=== PATIENT | female | born 1935 | race Caucasian/White ===

== ENCOUNTER → 2022-07-24 11:53 | Outpatient (CLI) | payer MEDICARE, OTHER, SELFPAY | PROVIDERS: Referring Provider Chiropractor Independent Medical Examiner; Visit Provider Chiropractor Independent Medical Examiner | DX: M25.551 Pain in right hip (principal); M16.11 Unilateral primary osteoarthritis, right hip; M99.05 Segmental and somatic dysfunction of pelvic region; M99.06 Segmental and somatic dysfunction of lower extremity; M51.37 Other intervertebral disc degeneration, lumbosacral region ==

== ENCOUNTER → 2022-07-24 12:16 | Outpatient (CLI) | payer MEDICARE, OTHER, SELFPAY ==
--- NOTE | 2022-07-24 | DI.MRI.S_ITS ---
PROCEDURE: MR HIP RT WO CON INDICATIONS: RIGHT HIP PAIN TECHNIQUE: Noncontrast coronal T1 spin echo and STIR through the bony pelvis. Coronal and axial T2 fast spin echo with fat saturation, sagittal T1 spin echo, and oblique axial T2 fast spin echo with fat saturation through the hip. COMPARISON: [facility], MR, MR PELVIS WO CON, 07/24/2022, 12:22. FINDINGS: Image quality: Excellent. Bones and joints: Periarticular osteophyte formation at the bilateral hips. Bone marrow of the pelvic ring and proximal femurs show normal signal throughout. No intraosseous lesions or fractures. No avascular necrosis of the femoral heads. The visualized lower lumbar spine appears normally aligned. Tendons and ligaments: Moderate grade tearing of the right gluteus medius and minimus tendons at the femoral insertion sites with moderate surrounding T2 signal elevation. The nearby proximal iliotibial band also appears intact. The iliopsoas tendon appears intact, without adjacent bursal fluid collections or evidence for impingement syndrome. The origin of the hamstring tendon is intact at the ischial tuberosity, as well as the associated sacrotuberous ligament. The straight and reflected heads of the rectus femoris muscle origin appear intact, as well as the conjoint tendon. The ligamentum teres appears intact where visualized. Labrum and cartilage: Degenerative tearing of the bilateral hip vidal. Cartilage surface of the femoral head appears of normal thickness. The alpha angle of the femur is within normal limits at less than 55 degrees. Soft tissues: Visualized muscles demonstrate normal bulk and internal signal. Quadratus femoris muscle demonstrates no internal edema to suggest ischiofemoral impingement. The proximal sciatic neurovascular bundle appears normal adjacent to the hamstring tendons. No free pelvic fluid. Bladder wall thickness is normal. Genitourinary structures and bowel loops appear normal where visualized. IMPRESSION: 1. 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 2. Partial-thickness tearing of the right gluteus medius and minimus tendons. Dictated by: Ramez Rodarte M.D. on 07/24/2022 at 15:49 Transcribed by: SANCHO on 07/24/2022 at 15:52 Approved by: Ramez Rodarte M.D. on 07/24/2022 at 16:44
--- NOTE | 2022-07-24 12:19 | DI.MRI.S_ITS ---
PROCEDURE: MR PELVIS WO CON INDICATIONS: RT. HIP PAIN TECHNIQUE: Noncontrast coronal and axial T1 spin echo and STIR through the bony pelvis. COMPARISON: None. FINDINGS: Image quality: Excellent. Bones: Symmetric appearing [id number] bilateral hip joint osteoarthritic changes are seen with superior joint space narrowing, subchondral sclerosis and small marginal osteophyte formation. No marrow edema. No intraosseous lesions or fractures identified. No evidence of avascular necrosis of femoral head. The visualized lower lumbar spine appears normally aligned. Tendons: There is bilateral distal gluteus medius and minimus tendinosis at their insertions on greater trochanter. Low to moderate grade partial-thickness tear involving right distal gluteus medius and minute tendons at their insertion on greater trochanter is also seen. The nearby proximal iliotibial band also appears intact. The iliopsoas tendon appears intact, without adjacent bursal fluid collections or evidence for impingement syndrome. The origin of the hamstring tendon is intact at the ischial tuberosity, as well as the associated sacrotuberous ligament. The straight and reflected heads of the rectus femoris muscle origin appear intact, as well as the conjoint tendon. Soft tissues: Visualized muscles demonstrate normal bulk and internal signal. No joint effusions. No free pelvic fluid. Bladder wall thickness is normal. Genitourinary structures and bowel loops appear normal where visualized. IMPRESSION: 1. Fairly symmetric appearing [id number] bilateral hip joint osteoarthritis. No pelvic fracture or dislocation. No evidence of avascular necrosis of femoral head. No suspicious bony lesion. 2. Bilateral distal gluteus medius and minimus tendinosis with low to moderate grade partial-thickness tear involving right distal gluteus medius and minimus at their insertions on greater trochanter. No other muscle or tendon signal abnormality is seen. 3. No pelvic free fluid. No abnormal bowel wall thickening. No bladder wall thickening. Dictated by: Vernon Juráez M.D. on 07/24/2022 at 17:32 Approved by: Vernon Juárez M.D. on 07/24/2022 at 17:35
== END ==
PROVIDERS: Referring Provider Chiropractor Independent Medical Examiner; Visit Provider Chiropractor Independent Medical Examiner
DX: M25.551 Pain in right hip (principal); M99.05 Segmental and somatic dysfunction of pelvic region; M51.37 Other intervertebral disc degeneration, lumbosacral region; M16.11 Unilateral primary osteoarthritis, right hip; M99.06 Segmental and somatic dysfunction of lower extremity
CPT/HCPCS: 72195; 73721

== ENCOUNTER 2022-11-09 16:39 | Emergency (ER) | payer MEDICARE, OTHER, SELFPAY ==
[2022-11-09] VITALS (30 sets, daily range): BP systolic 114–175; BP diastolic 53–114; PULSE 59–90; RESP 16–85; TEMP 36.4–37; O2SAT 88–99; BMI 28.8
--- NOTE | 2022-11-09 16:55 | ED_ITS ---
HPI - Weakness <DO Gray Beasley Last Filed: 11/16/22 17:08> General Chief complaint: Weakness Stated complaint: shaky/cant walk Time Seen by Provider: 11/09/22 16:54 Source: patient Mode of arrival: Wheelchair Limitations: no limitations History of Present Illness HPI Narrative: This is a 87-year-old female with no daily medications, patient was at a holiday republican had at least 1 maybe 2 drinks daughter states she was a little wobbly but that is normal for her way back to the car. Patient she states gotten the car started to be more decreased in her mentation and could not walk or even get out of the car afterwards. Patient states the room was spinning, she denies headache, she denies chest pain or shortness of breath, she has had nausea and vomiting. She feels like she might have diarrhea but has had normal stools. She is having some cramping in her abdomen. She denies urinary symptoms. She is able to move her arms and legs but with some difficulty. 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 She is allergies to codeine, penicillin, morphine and oxycodone and daughter states she gets very sick with most narcotics. No tobacco, she will sometimes have 1 alcoholic drink, last drink was about 5 months ago, no illicit. Patient denies any co-ingestions, neither patient nor daughter are suspicious for exposure to other substances unintentionally. Related Data Home Medications Medication Instructions Recorded Confirmed No Known Home Medications 07/24/22 07/24/22 Allergies Allergy/AdvReac Type Severity Reaction Status Date / Time codeine AdvReac Severe Vomiting Verified 07/24/22 13:59 morphine AdvReac Severe Vomiting Verified 07/24/22 13:59 Penicillins AdvReac Intermediate Vomiting Verified 07/24/22 13:59 oxycodone AdvReac Vomiting Unverified 07/24/22 13:59 Review of Systems <DO Gray Beasley Last Filed: 11/16/22 17:08> Review of Systems ROS Unobtainable: All systems reviewed & are unremarkable except as noted in HPI and below Patient History <DO Gray Beasley Last Filed: 11/16/22 17:08> Medical History Back pain Memory loss, short term Social History Smoking Status: Never smoker Smoking Status: Never smoker Substance Use Type: does not use Exam <Violeta Chacko DO - Last Filed: 11/16/22 17:08> Narrative Exam Narrative: GEN: Elderly appearing female initially slumped in the chair, she does interact, alert, tries to answer questions but she feels very nauseated and dry heaves, patient appears to be in in moderate distress. HEENT: Atraumatic, pupils are equal round reactive to light, extraocular moveme nts are intact, positive for nystagmus, nares are clear, TMs are clear with no fluid, there is no conjunctival pallor. Throat is clear without any exudates, erythema, tonsillar enlargement or uvular deviation HEART: Regular rate and rhythm without murmur, clicks, rubs. pulses are equal in upper and lower extremities LUNGS:Lungs clear to auscultation, no wheezes, rales, crackles, chest moves symm etrically ABD:bowel sounds normal, soft, non-tender, no guarding, rebound, rigidity, no masses noted, no hepatosplenomegaly :No CVA tenderness MSCL: Non-tender, no muscle atrophy, patient has no lateralizing deficits on exam, she can lift and move all her legs but is generally weak. NEURO:CN 2-12 intact, sensation normal SKIN: No rash, erythema or other skin changes Initial Vital Signs Initial Vital Signs: Vital Signs Temperature 97.8 F 11/09/22 16:46 Pulse Rate 62 11/09/22 16:46 Respiratory Rate 22 11/09/22 16:46 Blood Pressure 126/62 11/09/22 16:46 Pulse Oximetry 97 11/09/22 16:46 Oxygen Delivery Method 11/09/22 16:46 <Judith Huerta MD - Last Filed: 11/09/22 21:05> Initial Vital Signs Initial Vital Signs: Vital Signs Temperature 97.8 F 11/09/22 16:46 Pulse Rate 62 11/09/22 16:46 Respiratory Rate 22 11/09/22 16:46 Blood Pressure 126/62 11/09/22 16:46 Pulse Oximetry 97 11/09/22 16:46 Oxygen Delivery Method 11/09/22 16:46 Course <Violeta Chacko, - Last Filed: 11/16/22 17:08> Orders Ordered: Discontinued Medications Aspirin (Aspirin 81 Mg Chew Tab) 324 mg PO NOW ONE Stop: 11/09/22 17:02 Last Admin: 11/09/22 18:17 Dose: Not Given Documented By: BUDDY Sodium Chloride (Normal Saline 0.9%) 1,000 mls @ 1,000 mls/hr IV BOLUS ONE Stop: 11/09/22 18:04 Last Infusion: 11/09/22 19:09 Dose: 0 mls/hr Documented By: Admin: 11/09/22 17:21 Dose: 1,000 mls/hr Documented By: BUDDY POTASSIUM CHLORIDE IN WATER (Potassium Cl 10 Meq/100 Ml Margie) 10 meq in 100 mls @ 100 mls/hr IV Q1H BRYSON Stop: 11/09/22 21:29 Last Infusion: 11/09/22 20:50 Dose: 0 mls/hr Documented By: Admin: 11/09/22 19:27 Dose: 75 mls/hr Documented By: Infusion: 11/09/22 19:20 Dose: 0 mls/hr Documented By: Admin: 11/09/22 18:00 Dose: 100 mls/hr Documented By: BUDDY Sodium Chloride (Normal Saline 0.9%) 1,000 mls @ 1,000 mls/hr IV BOLUS ONE Stop: 11/09/22 19:21 Last Infusion: 11/09/22 21:11 Dose: 0 mls/hr Documented By: Admin: 11/09/22 18:52 Dose: 1,000 mls/hr Documented By: BUDDY Ondansetron HCl (Ondansetron 4 Mg/2 Ml Inj) 4 mg IV NOW ONE Stop: 11/09/22 17:06 Last Admin: 11/09/22 17:10 Dose: 4 mg Documented By: BUDDY Vital Signs Vital signs: Vital Signs - 8 hr 11/09/22 16:46 11/09/22 17:11 11/09/22 17:12 Temperature 97.8 F Pulse Rate 62 70 72 Respiratory Rate 22 22 21 Blood Pressure 126/62 Pulse Oximetry 97 Oxygen Delivery Method Room Air Oxygen Flow Rate 11/09/22 17:12 11/09/22 17:21 11/09/22 17:21 Temperature Pulse Rate 68 Respiratory Rate 22 Blood Pressure 134/71 128/62 Pulse Oximetry 92 Oxygen Delivery Method Oxygen Flow Rate 11/09/22 17:30 11/09/22 17:31 11/09/22 17:31 Temperature Pulse Rate 66 68 Respiratory Rate 27 H 24 Blood Pressure 135/58 L Pulse Oximetry 92 93 Oxygen Delivery Method Oxygen Flow Rate 11/09/22 17:41 11/09/22 17:41 11/09/22 18:00 Temperature Pulse Rate 73 71 Respiratory Rate 22 22 Blood Pressure 140/63 Pulse Oximetry 97 98 Oxygen Delivery Method Oxygen Flow Rate 11/09/22 18:12 11/09/22 18:12 11/09/22 18:20 Temperature Pulse Rate 77 77 Respiratory Rate 22 30 H Blood Pressure 121/60 Pulse Oximetry 99 88 L Oxygen Delivery Method Room Air Oxygen Flow Rate 11/09/22 18:20 11/09/22 18:21 11/09/22 18:30 Temperature Pulse Rate Respiratory Rate 22 Blood Pressure 114/53 L 124/56 L Pulse Oximetry 98 Oxygen Delivery Method Nasal Cannula Oxygen Flow Rate 2 11/09/22 18:30 11/09/22 18:41 11/09/22 18:41 Temperature Pulse Rate 69 67 Respiratory Rate 22 21 Blood Pressure 150/65 H Pulse Oximetry 95 99 Oxygen Delivery Method Oxygen Flow Rate 11/09/22 18:50 11/09/22 18:50 11/09/22 19:00 Temperature Pulse Rate 71 78 Respiratory Rate 22 21 Blood Pressure 150/70 H Pulse Oximetry 94 96 Oxygen Delivery Method Oxygen Flow Rate 11/09/22 19:01 11/09/22 19:01 11/09/22 19:10 Temperature Pulse Rate 79 71 Respiratory Rate 20 18 Blood Pressure 175/114 H Pulse Oximetry 97 Oxygen Delivery Method Oxygen Flow Rate 11/09/22 19:10 11/09/22 19:20 11/09/22 19:20 Temperature Pulse Rate 65 Respiratory Rate 17 Blood Pressure 128/74 123/68 Pulse Oximetry 97 Oxygen Delivery Method Oxygen Flow Rate 11/09/22 20:50 Temperature Pulse Rate 90 Respiratory Rate Blood Pressure 148/85 H Pulse Oximetry 97 Oxygen Delivery Method Room Air Oxygen Flow Rate <Judith Huerta MD - Last Filed: 11/09/22 21:05> Orders Ordered: Discontinued Medications Aspirin (Aspirin 81 Mg Chew Tab) 324 mg PO NOW ONE Stop: 11/09/22 17:02 Last Admin: 11/09/22 18:17 Dose: Not Given Documented By: BUDDY Sodium Chloride (Normal Saline 0.9%) 1,000 mls @ 1,000 mls/hr IV BOLUS ONE Stop: 11/09/22 18:04 Last Infusion: 11/09/22 19:09 Dose: 0 mls/hr Documented By: Admin: 11/09/22 17:21 Dose: 1,000 mls/hr Documented By: BUDDY POTASSIUM CHLORIDE IN WATER (Potassium Cl 10 Meq/100 Ml Margie) 10 meq in 100 mls @ 100 mls/hr IV Q1H BRYSON Stop: 11/09/22 21:29 Last Infusion: 11/09/22 20:50 Dose: 0 mls/hr Documented By: Admin: 11/09/22 19:27 Dose: 75 mls/hr Documented By: Infusion: 11/09/22 19:20 Dose: 0 mls/hr Documented By: Admin: 11/09/22 18:00 Dose: 100 mls/hr Documented By: BUDDY Sodium Chloride (Normal Saline 0.9%) 1,000 mls @ 1,000 mls/hr IV BOLUS ONE Stop: 11/09/22 19:21 Last Infusion: 11/09/22 21:11 Dose: 0 mls/hr Documented By: Admin: 11/09/22 18:52 Dose: 1,000 mls/hr Documented By: BUDDY Ondansetron HCl (Ondansetron 4 Mg/2 Ml Inj) 4 mg IV NOW ONE Stop: 11/09/22 17:06 Last Admin: 11/09/22 17:10 Dose: 4 mg Documented By: BUDDY Vital Signs Vital signs: Vital Signs - 8 hr 11/09/22 16:46 11/09/22 17:11 11/09/22 17:12 Temperature 97.8 F Pulse Rate 62 70 72 Respiratory Rate 22 22 21 Blood Pressure 126/62 Pulse Oximetry 97 Oxygen Delivery Method Room Air Oxygen Flow Rate 11/09/22 17:12 11/09/22 17:21 11/09/22 17:21 Temperature Pulse Rate 68 Respiratory Rate 22 Blood Pressure 134/71 128/62 Pulse Oximetry 92 Oxygen Delivery Method Oxygen Flow Rate 11/09/22 17:30 11/09/22 17:31 11/09/22 17:31 Temperature Pulse Rate 66 68 Respiratory Rate 27 H 24 Blood Pressure 135/58 L Pulse Oximetry 92 93 Oxygen Delivery Method Oxygen Flow Rate 11/09/22 17:41 11/09/22 17:41 11/09/22 18:00 Temperature Pulse Rate 73 71 Respiratory Rate 22 22 Blood Pressure 140/63 Pulse Oximetry 97 98 Oxygen Delivery Method Oxygen Flow Rate 11/09/22 18:12 11/09/22 18:12 11/09/22 18:20 Temperature Pulse Rate 77 77 Respiratory Rate 22 30 H Blood Pressure 121/60 Pulse Oximetry 99 88 L Oxygen Delivery Method Room Air Oxygen Flow Rate 11/09/22 18:20 11/09/22 18:21 11/09/22 18:30 Temperature Pulse Rate Respiratory Rate 22 Blood Pressure 114/53 L 124/56 L Pulse Oximetry 98 Oxygen Delivery Method Nasal Cannula Oxygen Flow Rate 2 11/09/22 18:30 11/09/22 18:41 11/09/22 18:41 Temperature Pulse Rate 69 67 Respiratory Rate 22 21 Blood Pressure 150/65 H Pulse Oximetry 95 99 Oxygen Delivery Method Oxygen Flow Rate 11/09/22 18:50 11/09/22 18:50 11/09/22 19:00 Temperature Pulse Rate 71 78 Respiratory Rate 22 21 Blood Pressure 150/70 H Pulse Oximetry 94 96 Oxygen Delivery Method Oxygen Flow Rate 11/09/22 19:01 11/09/22 19:01 11/09/22 19:10 Temperature Pulse Rate 79 71 Respiratory Rate 20 18 Blood Pressure 175/114 H Pulse Oximetry 97 Oxygen Delivery Method Oxygen Flow Rate 11/09/22 19:10 11/09/22 19:20 11/09/22 19:20 Temperature Pulse Rate 65 Respiratory Rate 17 Blood Pressure 128/74 123/68 Pulse Oximetry 97 Oxygen Delivery Method Oxygen Flow Rate 11/09/22 20:50 Temperature Pulse Rate 90 Respiratory Rate Blood Pressure 148/85 H Pulse Oximetry 97 Oxygen Delivery Method Room Air Oxygen Flow Rate MDM - Weakness <Violeta Chacko, DO - Last Filed: 11/16/22 17:08> Lab Data Result diagrams: 11/09/22 16:50 11/09/22 16:50 Labs: Lab Results 11/09/22 11/09/22 11/09/22 Range/Units 16:50 16:50 16:50 WBC 8.8 (4.5-11.0) X10^3/uL RBC 4.49 (4.0-5.2) X10^6/uL Hgb 14.4 (12.0-16.0) g/dL Hct 41.8 (36-46) % MCV 93.0 (80-100) fL MCH 32.2 (26-34) PG MCHC 34.6 (30-36) % RDW 12.5 (11.6-14.8) % Plt Count 298 (150-400) X10^3/uL Neut % (Auto) 62.0 (50-75) % Lymph % (Auto) 31.1 (25-40) % [place] % (Auto) 4.9 (3-14) % Eos % (Auto) 1.0 L (2-4) % Baso % (Auto) 1.0 (0-2) % Neut # (Auto) 5500 (9903-2504) /uL Lymph # (Auto) 2700 (7185-9965) /uL [place] # (Auto) 400 (0-900) /uL Eos # (Auto) 100 (0-450) /uL Baso # (Auto) 100 (0-100) /uL PT 11.7 (10.1-12.7) SECONDS INR 1.0 (0.9-1.3) APTT 24 L (26-36) SECONDS Sodium 138 (137-145) mmol/L Potassium 3.0 L (3.4-5.1) mmol/L Chloride 107 (98-107) mmol/L Carbon Dioxide 18 L (22-32) mmol/L BUN 18 H (7-17) mg/dL Creatinine 0.55 (0.52-1.04) mg/dL Estimated GFR > 60 (>60) mL/min BUN/Creatinine Ratio 32.7 H (6-22) Glucose 122 H (80-110) mg/dL Lactate (0.7-2.1) mmol/L Calcium 9.1 (8.4-10.2) mg/dL Magnesium 2.0 (1.6-2.3) mg/dL Total Bilirubin 0.5 (0.2-1.3) mg/dL AST 22 (14-36) IU/L ALT 20 (<35) IU/L Alkaline Phosphatase 71 (38-126) U/L Total Creatine Kinase 52 (30-135) U/L CK-MB (CK-2) TNP CK-MB (CK-2) Rel Index TNP Troponin I < 0.012 (0.01-0.034) ng/mL NT-Pro-B Natriuret Pep (<450) pg/mL Total Protein 7.3 (6.3-8.2) g/dL Albumin 4.2 (3.5-5.0) g/dL Globulin 3.1 (1.7-4.1) g/dL Albumin/Globulin Ratio 1.4 (1.0-2.8) Lipase 59 (23-300) U/L Urine Color Urine Appearance Urine pH (4.5-8.0) Ur Specific [place] (1.000-1.035) Urine Protein (Negative) Urine Glucose (UA) (Negative) g/dL Urine Ketones (NEGATIVE) Urine Occult Blood (Negative) Urine Nitrate (Negative) Urine Bilirubin (NEGATIVE) Urine Urobilinogen (0.2) E.U./dL Ur Leukocyte Esterase (NEGATIVE) Urine RBC (0-5/HPF) Urine WBC (0-5/HPF) Ur Squamous Epith Cells (0-5/HPF) Urine Bacteria (None) Ur Culture Indicated? U Opiates 300ng/mL cut (Negative) Ur Oxycodone Screen (Negative) Urine Methadone Screen (Negative) Ur Barbiturates Screen (Negative) U Tricyclic Antidepress (Negative) Ur Phencyclidine Scrn (Negative) Ur Amphetamines Screen (Negative) U Methamphetamines Scrn (Negative) Ur MDMA Scrn (Ecstasy) (Negative) U Benzodiazepines Scrn (Negative) Urine Cocaine Screen (Negative) U Marijuana (THC) Screen (Negative) Ethyl Alcohol ( - 10) mg/dL Chlamy pneumoniae PCR (Not Detect) Adenovirus (PCR) (Not Detect) B. pertussis DNA (PCR) (Not Detecte) B.parapertussis DNA PCR (Not Detecte) Coronavirus OC43 (PCR) (Not Detect) Coronavirus HKU1 (PCR) (Not Detect) Coronavirus 229E (PCR) (Not Detect) SARS-CoV-2 (PCR) (Not Detecte) Coronavirus NL63 (PCR) (Not Detect) Human Metapneumovir PCR (Not Detect) Influenza Type A (PCR) (Not Detect) Influenza Type B (PCR) (Not Detect) M. pneumoniae (PCR) (Not Detect) Parainfluenza 1 (PCR) (Not Detect) Parainfluenza 2 (PCR) (Not Detect) Parainfluenza 3 (PCR) (Not Detect) Parainfluenza 4 (PCR) (Not Detect) RSV (PCR) (Not Detect) Entero/Rhino (PCR) (Not Detect) 11/09/22 11/09/22 11/09/22 Range/Units 16:50 16:50 16:50 WBC (4.5-11.0) X10^3/uL RBC (4.0-5.2) X10^6/uL Hgb (12.0-16.0) g/dL Hct (36-46) % MCV (80-100) fL MCH (26-34) PG MCHC (30-36) % RDW (11.6-14.8) % Plt Count (150-400) X10^3/uL Neut % (Auto) (50-75) % Lymph % (Auto) (25-40) % [place] % (Auto) (3-14) % Eos % (Auto) (2-4) % Baso % (Auto) (0-2) % Neut # (Auto) (3985-7545) /uL Lymph # (Auto) (7126-3503) /uL [place] # (Auto) (0-900) /uL Eos # (Auto) (0-450) /uL Baso # (Auto) (0-100) /uL PT (10.1-12.7) SECONDS INR (0.9-1.3) APTT (26-36) SECONDS Sodium (137-145) mmol/L Potassium (3.4-5.1) mmol/L Chloride (98-107) mmol/L Carbon Dioxide (22-32) mmol/L BUN (7-17) mg/dL Creatinine (0.52-1.04) mg/dL Estimated GFR (>60) mL/min BUN/Creatinine Ratio (6-22) Glucose (80-110) mg/dL Lactate 4.1 H* (0.7-2.1) mmol/L Calcium (8.4-10.2) mg/dL Magnesium (1.6-2.3) mg/dL Total Bilirubin (0.2-1.3) mg/dL AST (14-36) IU/L ALT (<35) IU/L Alkaline Phosphatase (38-126) U/L Total Creatine Kinase (30-135) U/L CK-MB (CK-2) CK-MB (CK-2) Rel Index Troponin I (0.01-0.034) ng/mL NT-Pro-B Natriuret Pep 92 (<450) pg/mL Total Protein (6.3-8.2) g/dL Albumin (3.5-5.0) g/dL Globulin (1.7-4.1) g/dL Albumin/Globulin Ratio (1.0-2.8) Lipase (23-300) U/L Urine Color Urine Appearance Urine pH (4.5-8.0) Ur Specific [place] (1.000-1.035) Urine Protein (Negative) Urine Glucose (UA) (Negative) g/dL Urine Ketones (NEGATIVE) Urine Occult Blood (Negative) Urine Nitrate (Negative) Urine Bilirubin (NEGATIVE) Urine Urobilinogen (0.2) E.U./dL Ur Leukocyte Esterase (NEGATIVE) Urine RBC (0-5/HPF) Urine WBC (0-5/HPF) Ur Squamous Epith Cells (0-5/HPF) Urine Bacteria (None) Ur Culture Indicated? U Opiates 300ng/mL cut (Negative) Ur Oxycodone Screen (Negative) Urine Methadone Screen (Negative) Ur Barbiturates Screen (Negative) U Tricyclic Antidepress (Negative) Ur Phencyclidine Scrn (Negative) Ur Amphetamines Screen (Negative) U Methamphetamines Scrn (Negative) Ur MDMA Scrn (Ecstasy) (Negative) U Benzodiazepines Scrn (Negative) Urine Cocaine Screen (Negative) U Marijuana (THC) Screen (Negative) Ethyl Alcohol 84 H ( - 10) mg/dL Chlamy pneumoniae PCR (Not Detect) Adenovirus (PCR) (Not Detect) B. pertussis DNA (PCR) (Not Detecte) B.parapertussis DNA PCR (Not Detecte) Coronavirus OC43 (PCR) (Not Detect) Coronavirus HKU1 (PCR) (Not Detect) Coronavirus 229E (PCR) (Not Detect) SARS-CoV-2 (PCR) (Not Detecte) Coronavirus NL63 (PCR) (Not Detect) Human Metapneumovir PCR (Not Detect) Influenza Type A (PCR) (Not Detect) Influenza Type B (PCR) (Not Detect) M. pneumoniae (PCR) (Not Detect) Parainfluenza 1 (PCR) (Not Detect) Parainfluenza 2 (PCR) (Not Detect) Parainfluenza 3 (PCR) (Not Detect) Parainfluenza 4 (PCR) (Not Detect) RSV (PCR) (Not Detect) Entero/Rhino (PCR) (Not Detect) 11/09/22 11/09/22 11/09/22 Range/Units 16:50 18:29 19:10 WBC (4.5-11.0) X10^3/uL RBC (4.0-5.2) X10^6/uL Hgb (12.0-16.0) g/dL Hct (36-46) % MCV (80-100) fL MCH (26-34) PG MCHC (30-36) % RDW (11.6-14.8) % Plt Count (150-400) X10^3/uL Neut % (Auto) (50-75) % Lymph % (Auto) (25-40) % [place] % (Auto) (3-14) % Eos % (Auto) (2-4) % Baso % (Auto) (0-2) % Neut # (Auto) (9261-5019) /uL Lymph # (Auto) (9384-7977) /uL [place] # (Auto) (0-900) /uL Eos # (Auto) (0-450) /uL Baso # (Auto) (0-100) /uL PT (10.1-12.7) SECONDS INR (0.9-1.3) APTT (26-36) SECONDS Sodium (137-145) mmol/L Potassium (3.4-5.1) mmol/L Chloride (98-107) mmol/L Carbon Dioxide (22-32) mmol/L BUN (7-17) mg/dL Creatinine (0.52-1.04) mg/dL Estimated GFR (>60) mL/min BUN/Creatinine Ratio (6-22) Glucose (80-110) mg/dL Lactate (0.7-2.1) mmol/L Calcium (8.4-10.2) mg/dL Magnesium 2.1 (1.6-2.3) mg/dL Total Bilirubin (0.2-1.3) mg/dL AST (14-36) IU/L ALT (<35) IU/L Alkaline Phosphatase (38-126) U/L Total Creatine Kinase (30-135) U/L CK-MB (CK-2) CK-MB (CK-2) Rel Index Troponin I (0.01-0.034) ng/mL NT-Pro-B Natriuret Pep (<450) pg/mL Total Protein (6.3-8.2) g/dL Albumin (3.5-5.0) g/dL Globulin (1.7-4.1) g/dL Albumin/Globulin Ratio (1.0-2.8) Lipase (23-300) U/L Urine Color Urine Appearance Urine pH (4.5-8.0) Ur Specific [place] (1.000-1.035) Urine Protein (Negative) Urine Glucose (UA) (Negative) g/dL Urine Ketones (NEGATIVE) Urine Occult Blood (Negative) Urine Nitrate (Negative) Urine Bilirubin (NEGATIVE) Urine Urobilinogen (0.2) E.U./dL Ur Leukocyte Esterase (NEGATIVE) Urine RBC (0-5/HPF) Urine WBC (0-5/HPF) Ur Squamous Epith Cells (0-5/HPF) Urine Bacteria (None) Ur Culture Indicated? U Opiates 300ng/mL cut Negative (Negative) Ur Oxycodone Screen Negative (Negative) Urine Methadone Screen Negative (Negative) Ur Barbiturates Screen Negative (Negative) U Tricyclic Antidepress Negative (Negative) Ur Phencyclidine Scrn Negative (Negative) Ur Amphetamines Screen Negative (Negative) U Methamphetamines Scrn Negative (Negative) Ur MDMA Scrn (Ecstasy) Negative (Negative) U Benzodiazepines Scrn Negative (Negative) Urine Cocaine Screen Negative (Negative) U Marijuana (THC) Screen Negative (Negative) Ethyl Alcohol ( - 10) mg/dL Chlamy pneumoniae PCR Not detected (Not Detect) Adenovirus (PCR) Not detected (Not Detect) B. pertussis DNA (PCR) Not detected (Not Detecte) B.parapertussis DNA PCR Not detected (Not Detecte) Coronavirus OC43 (PCR) Not detected (Not Detect) Coronavirus HKU1 (PCR) Not detected (Not Detect) Coronavirus 229E (PCR) Not detected (Not Detect) SARS-CoV-2 (PCR) Detected H (Not Detecte) Coronavirus NL63 (PCR) Not detected (Not Detect) Human Metapneumovir PCR Not detected (Not Detect) Influenza Type A (PCR) Not detected (Not Detect) Influenza Type B (PCR) Not detected (Not Detect) M. pneumoniae (PCR) Not detected (Not Detect) Parainfluenza 1 (PCR) Not detected (Not Detect) Parainfluenza 2 (PCR) Detected H (Not Detect) Parainfluenza 3 (PCR) Not detected (Not Detect) Parainfluenza 4 (PCR) Not detected (Not Detect) RSV (PCR) Detected H (Not Detect) Entero/Rhino (PCR) Not detected (Not Detect) 11/09/22 11/09/22 Range/Units 19:10 20:15 WBC (4.5-11.0) X10^3/uL RBC (4.0-5.2) X10^6/uL Hgb (12.0-16.0) g/dL Hct (36-46) % MCV (80-100) fL MCH (26-34) PG MCHC (30-36) % RDW (11.6-14.8) % Plt Count (150-400) X10^3/uL Neut % (Auto) (50-75) % Lymph % (Auto) (25-40) % [place] % (Auto) (3-14) % Eos % (Auto) (2-4) % Baso % (Auto) (0-2) % Neut # (Auto) (2768-4637) /uL Lymph # (Auto) (5402-4953) /uL [place] # (Auto) (0-900) /uL Eos # (Auto) (0-450) /uL Baso # (Auto) (0-100) /uL PT (10.1-12.7) SECONDS INR (0.9-1.3) APTT (26-36) SECONDS Sodium (137-145) mmol/L Potassium (3.4-5.1) mmol/L Chloride (98-107) mmol/L Carbon Dioxide (22-32) mmol/L BUN (7-17) mg/dL Creatinine (0.52-1.04) mg/dL Estimated GFR (>60) mL/min BUN/Creatinine Ratio (6-22) Glucose (80-110) mg/dL Lactate 2.7 H (0.7-2.1) mmol/L Calcium (8.4-10.2) mg/dL Magnesium (1.6-2.3) mg/dL Total Bilirubin (0.2-1.3) mg/dL AST (14-36) IU/L ALT (<35) IU/L Alkaline Phosphatase (38-126) U/L Total Creatine Kinase (30-135) U/L CK-MB (CK-2) CK-MB (CK-2) Rel Index Troponin I (0.01-0.034) ng/mL NT-Pro-B Natriuret Pep (<450) pg/mL Total Protein (6.3-8.2) g/dL Albumin (3.5-5.0) g/dL Globulin (1.7-4.1) g/dL Albumin/Globulin Ratio (1.0-2.8) Lipase (23-300) U/L Urine Color Yellow Urine Appearance Clear Urine pH 7.0 (4.5-8.0) Ur Specific [place] 1.010 (1.000-1.035) Urine Protein Negative (Negative) Urine Glucose (UA) Negative (Negative) g/dL Urine Ketones Trace H (NEGATIVE) Urine Occult Blood Trace-intact (Negative) Urine Nitrate Negative (Negative) Urine Bilirubin Negative (NEGATIVE) Urine Urobilinogen 0.2 (0.2) E.U./dL Ur Leukocyte Esterase Negative (NEGATIVE) Urine RBC 0-1/hpf (0-5/HPF) Urine WBC 0-1/hpf (0-5/HPF) Ur Squamous Epith Cells 0-1 /hpf (0-5/HPF) Urine Bacteria None seen (None) Ur Culture Indicated? Cult not indicated U Opiates 300ng/mL cut (Negative) Ur Oxycodone Screen (Negative) Urine Methadone Screen (Negative) Ur Barbiturates Screen (Negative) U Tricyclic Antidepress (Negative) Ur Phencyclidine Scrn (Negative) Ur Amphetamines Screen (Negative) U Methamphetamines Scrn (Negative) Ur MDMA Scrn (Ecstasy) (Negative) U Benzodiazepines Scrn (Negative) Urine Cocaine Screen (Negative) U Marijuana (THC) Screen (Negative) Ethyl Alcohol ( - 10) mg/dL Chlamy pneumoniae PCR (Not Detect) Adenovirus (PCR) (Not Detect) B. pertussis DNA (PCR) (Not Detecte) B.parapertussis DNA PCR (Not Detecte) Coronavirus OC43 (PCR) (Not Detect) Coronavirus HKU1 (PCR) (Not Detect) Coronavirus 229E (PCR) (Not Detect) SARS-CoV-2 (PCR) (Not Detecte) Coronavirus NL63 (PCR) (Not Detect) Human Metapneumovir PCR (Not Detect) Influenza Type A (PCR) (Not Detect) Influenza Type B (PCR) (Not Detect) M. pneumoniae (PCR) (Not Detect) Parainfluenza 1 (PCR) (Not Detect) Parainfluenza 2 (PCR) (Not Detect) Parainfluenza 3 (PCR) (Not Detect) Parainfluenza 4 (PCR) (Not Detect) RSV (PCR) (Not Detect) Entero/Rhino (PCR) (Not Detect) ECG Data Attestation: I personally reviewed and interpreted this ECG as follows: Interpretation: Sinus rhythm first-degree AV block rate of 67 OK 230 QRS of 152 and QTC of 479. 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 Patient does not have priors for comparison. [facility] Narrative Medical decision making narrative: This is a 87-year-old female who presents with weakness, nausea and vomiting dizziness or vertigo symptoms after having at least 1 or 2 alcoholic drinks. Suspect alcohol intoxication but based on age and daughter does not think she had more than 1 or 2 drinks at the most will search for other causes as well, EKG shows bifascicular block patient denies any chest pain or active shortness of breath. She is having nausea and vomiting, labs show CBC with eosinophils 1%, no other abnormalities, coags are overall appropriate, CMP does show a potassium of 3 this could be from emesis, CO2 of 18, BUN of 18 with normal renal function glucose of 122 and point of care glucose was 108 in the room, LFTs are appropriate, troponin Alcohol is only 84. Alcohol could certainly be a component but is not particularly high legal limit is 80, will do some additional imaging particularly as her potassium and CO2 level are both quite low. Head CT as well as imaging of the abdomen pelvis obtained, lactate cultures added on 630pm Dr Huerta, care is assumed from Dr. Chacko. Records reviewed, labs reviewed patient is independently examined. No acute abnormalities of the head, chest x-ray is unremarkable and abdominal pelvis CT does not show any significant pathology. Patient has had 2 L of fluid, potassium replacement, respiratory panel is pending and lactic acid will be repeated Respiratory panel comes back positive for COVID, parainfluenza 2 and RSV. After fluids and potassium replacement she is feeling significantly better. With a road test, she is able to independently sit up, get out of bed and walk to the bathroom. Oxygen saturations remain 97% on room air. She feels like she is back to her baseline and is surprised at the diagnosis of multiple viruses. She states that she is exquisitely sensitive to medications and his already had COVID twice and would prefer to not use paxlovid She lives with her daughter who will be able to bring her back should things worsen. With shared decision-making between patient, daughter and myself we have decided that discharge home is safe and appropriate. <Judith Huerta MD - Last Filed: 11/09/22 21:05> Lab Data Labs: Lab Results 11/09/22 11/09/22 11/09/22 Range/Units 16:50 16:50 16:50 WBC 8.8 (4.5-11.0) X10^3/uL RBC 4.49 (4.0-5.2) X10^6/uL Hgb 14.4 (12.0-16.0) g/dL Hct 41.8 (36-46) % MCV 93.0 (80-100) fL MCH 32.2 (26-34) PG MCHC 34.6 (30-36) % RDW 12.5 (11.6-14.8) % Plt Count 298 (150-400) X10^3/uL Neut % (Auto) 62.0 (50-75) % Lymph % (Auto) 31.1 (25-40) % [place] % (Auto) 4.9 (3-14) % Eos % (Auto) 1.0 L (2-4) % Baso % (Auto) 1.0 (0-2) % Neut # (Auto) 5500 (9623-2116) /uL Lymph # (Auto) 2700 (6399-6185) /uL Kemper # (Auto) 400 (0-900) /uL Eos # (Auto) 100 (0-450) /uL Baso # (Auto) 100 (0-100) /uL PT 11.7 (10.1-12.7) SECONDS INR 1.0 (0.9-1.3) APTT 24 L (26-36) SECONDS Sodium 138 (137-145) mmol/L Potassium 3.0 L (3.4-5.1) mmol/L Chloride 107 (98-107) mmol/L Carbon Dioxide 18 L (22-32) mmol/L BUN 18 H (7-17) mg/dL Creatinine 0.55 (0.52-1.04) mg/dL Estimated GFR > 60 (>60) mL/min BUN/Creatinine Ratio 32.7 H (6-22) Glucose 122 H (80-110) mg/dL Lactate (0.7-2.1) mmol/L Calcium 9.1 (8.4-10.2) mg/dL Magnesium 2.0 (1.6-2.3) mg/dL Total Bilirubin 0.5 (0.2-1.3) mg/dL AST 22 (14-36) IU/L ALT 20 (<35) IU/L Alkaline Phosphatase 71 (38-126) U/L Total Creatine Kinase 52 (30-135) U/L CK-MB (CK-2) TNP CK-MB (CK-2) Rel Index TNP Troponin I < 0.012 (0.01-0.034) ng/mL NT-Pro-B Natriuret Pep (<450) pg/mL Total Protein 7.3 (6.3-8.2) g/dL Albumin 4.2 (3.5-5.0) g/dL Globulin 3.1 (1.7-4.1) g/dL Albumin/Globulin Ratio 1.4 (1.0-2.8) Lipase 59 (23-300) U/L Urine Color Urine Appearance Urine pH (4.5-8.0) Ur Specific [place] (1.000-1.035) Urine Protein (Negative) Urine Glucose (UA) (Negative) g/dL Urine Ketones (NEGATIVE) Urine Occult Blood (Negative) Urine Nitrate (Negative) Urine Bilirubin (NEGATIVE) Urine Urobilinogen (0.2) E.U./dL Ur Leukocyte Esterase (NEGATIVE) Urine RBC (0-5/HPF) Urine WBC (0-5/HPF) Ur Squamous Epith Cells (0-5/HPF) Urine Bacteria (None) Ur Culture Indicated? U Opiates 300ng/mL cut (Negative) Ur Oxycodone Screen (Negative) Urine Methadone Screen (Negative) Ur Barbiturates Screen (Negative) U Tricyclic Antidepress (Negative) Ur Phencyclidine Scrn (Negative) Ur Amphetamines Screen (Negative) U Methamphetamines Scrn (Negative) Ur MDMA Scrn (Ecstasy) (Negative) U Benzodiazepines Scrn (Negative) Urine Cocaine Screen (Negative) U Marijuana (THC) Screen (Negative) Ethyl Alcohol ( - 10) mg/dL Chlamy pneumoniae PCR (Not Detect) Adenovirus (PCR) (Not Detect) B. pertussis DNA (PCR) (Not Detecte) B.parapertussis DNA PCR (Not Detecte) Coronavirus OC43 (PCR) (Not Detect) Coronavirus HKU1 (PCR) (Not Detect) Coronavirus 229E (PCR) (Not Detect) SARS-CoV-2 (PCR) (Not Detecte) Coronavirus NL63 (PCR) (Not Detect) Human Metapneumovir PCR (Not Detect) Influenza Type A (PCR) (Not Detect) Influenza Type B (PCR) (Not Detect) M. pneumoniae (PCR) (Not Detect) Parainfluenza 1 (PCR) (Not Detect) Parainfluenza 2 (PCR) (Not Detect) Parainfluenza 3 (PCR) (Not Detect) Parainfluenza 4 (PCR) (Not Detect) RSV (PCR) (Not Detect) Entero/Rhino (PCR) (Not Detect) 11/09/22 11/09/22 11/09/22 Range/Units 16:50 16:50 16:50 WBC (4.5-11.0) X10^3/uL RBC (4.0-5.2) X10^6/uL Hgb (12.0-16.0) g/dL Hct (36-46) % MCV (80-100) fL MCH (26-34) PG MCHC (30-36) % RDW (11.6-14.8) % Plt Count (150-400) X10^3/uL Neut % (Auto) (50-75) % Lymph % (Auto) (25-40) % Kem[place] % (Auto) (3-14) % Eos % (Auto) (2-4) % Baso % (Auto) (0-2) % Neut # (Auto) (1830-5782) /uL Lymph # (Auto) (7971-0115) /uL [place] # (Auto) (0-900) /uL Eos # (Auto) (0-450) /uL Baso # (Auto) (0-100) /uL PT (10.1-12.7) SECONDS INR (0.9-1.3) APTT (26-36) SECONDS Sodium (137-145) mmol/L Potassium (3.4-5.1) mmol/L Chloride (98-107) mmol/L Carbon Dioxide (22-32) mmol/L BUN (7-17) mg/dL Creatinine (0.52-1.04) mg/dL Estimated GFR (>60) mL/min BUN/Creatinine Ratio (6-22) Glucose (80-110) mg/dL Lactate 4.1 H* (0.7-2.1) mmol/L Calcium (8.4-10.2) mg/dL Magnesium (1.6-2.3) mg/dL Total Bilirubin (0.2-1.3) mg/dL AST (14-36) IU/L ALT (<35) IU/L Alkaline Phosphatase (38-126) U/L Total Creatine Kinase (30-135) U/L CK-MB (CK-2) CK-MB (CK-2) Rel Index Troponin I (0.01-0.034) ng/mL NT-Pro-B Natriuret Pep 92 (<450) pg/mL Total Protein (6.3-8.2) g/dL Albumin (3.5-5.0) g/dL Globulin (1.7-4.1) g/dL Albumin/Globulin Ratio (1.0-2.8) Lipase (23-300) U/L Urine Color Urine Appearance Urine pH (4.5-8.0) Ur Specific [place] (1.000-1.035) Urine Protein (Negative) Urine Glucose (UA) (Negative) g/dL Urine Ketones (NEGATIVE) Urine Occult Blood (Negative) Urine Nitrate (Negative) Urine Bilirubin (NEGATIVE) Urine Urobilinogen (0.2) E.U./dL Ur Leukocyte Esterase (NEGATIVE) Urine RBC (0-5/HPF) Urine WBC (0-5/HPF) Ur Squamous Epith Cells (0-5/HPF) Urine Bacteria (None) Ur Culture Indicated? U Opiates 300ng/mL cut (Negative) Ur Oxycodone Screen (Negative) Urine Methadone Screen (Negative) Ur Barbiturates Screen (Negative) U Tricyclic Antidepress (Negative) Ur Phencyclidine Scrn (Negative) Ur Amphetamines Screen (Negative) U Methamphetamines Scrn (Negative) Ur MDMA Scrn (Ecstasy) (Negative) U Benzodiazepines Scrn (Negative) Urine Cocaine Screen (Negative) U Marijuana (THC) Screen (Negative) Ethyl Alcohol 84 H ( - 10) mg/dL Chlamy pneumoniae PCR (Not Detect) Adenovirus (PCR) (Not Detect) B. pertussis DNA (PCR) (Not Detecte) B.parapertussis DNA PCR (Not Detecte) Coronavirus OC43 (PCR) (Not Detect) Coronavirus HKU1 (PCR) (Not Detect) Coronavirus 229E (PCR) (Not Detect) SARS-CoV-2 (PCR) (Not Detecte) Coronavirus NL63 (PCR) (Not Detect) Human Metapneumovir PCR (Not Detect) Influenza Type A (PCR) (Not Detect) Influenza Type B (PCR) (Not Detect) M. pneumoniae (PCR) (Not Detect) Parainfluenza 1 (PCR) (Not Detect) Parainfluenza 2 (PCR) (Not Detect) Parainfluenza 3 (PCR) (Not Detect) Parainfluenza 4 (PCR) (Not Detect) RSV (PCR) (Not Detect) Entero/Rhino (PCR) (Not Detect) 11/09/22 11/09/22 11/09/22 Range/Units 16:50 18:29 19:10 WBC (4.5-11.0) X10^3/uL RBC (4.0-5.2) X10^6/uL Hgb (12.0-16.0) g/dL Hct (36-46) % MCV (80-100) fL MCH (26-34) PG MCHC (30-36) % RDW (11.6-14.8) % Plt Count (150-400) X10^3/uL Neut % (Auto) (50-75) % Lymph % (Auto) (25-40) % [place] % (Auto) (3-14) % Eos % (Auto) (2-4) % Baso % (Auto) (0-2) % Neut # (Auto) (8009-3392) /uL Lymph # (Auto) (1850-7166) /uL [place] # (Auto) (0-900) /uL Eos # (Auto) (0-450) /uL Baso # (Auto) (0-100) /uL PT (10.1-12.7) SECONDS INR (0.9-1.3) APTT (26-36) SECONDS Sodium (137-145) mmol/L Potassium (3.4-5.1) mmol/L Chloride (98-107) mmol/L Carbon Dioxide (22-32) mmol/L BUN (7-17) mg/dL Creatinine (0.52-1.04) mg/dL Estimated GFR (>60) mL/min BUN/Creatinine Ratio (6-22) Glucose (80-110) mg/dL Lactate (0.7-2.1) mmol/L Calcium (8.4-10.2) mg/dL Magnesium 2.1 (1.6-2.3) mg/dL Total Bilirubin (0.2-1.3) mg/dL AST (14-36) IU/L ALT (<35) IU/L Alkaline Phosphatase (38-126) U/L Total Creatine Kinase (30-135) U/L CK-MB (CK-2) CK-MB (CK-2) Rel Index Troponin I (0.01-0.034) ng/mL NT-Pro-B Natriuret Pep (<450) pg/mL Total Protein (6.3-8.2) g/dL Albumin (3.5-5.0) g/dL Globulin (1.7-4.1) g/dL Albumin/Globulin Ratio (1.0-2.8) Lipase (23-300) U/L Urine Color Urine Appearance Urine pH (4.5-8.0) Ur Specific [place] (1.000-1.035) Urine Protein (Negative) Urine Glucose (UA) (Negative) g/dL Urine Ketones (NEGATIVE) Urine Occult Blood (Negative) Urine Nitrate (Negative) Urine Bilirubin (NEGATIVE) Urine Urobilinogen (0.2) E.U./dL Ur Leukocyte Esterase (NEGATIVE) Urine RBC (0-5/HPF) Urine WBC (0-5/HPF) Ur Squamous Epith Cells (0-5/HPF) Urine Bacteria (None) Ur Culture Indicated? U Opiates 300ng/mL cut Negative (Negative) Ur Oxycodone Screen Negative (Negative) Urine Methadone Screen Negative (Negative) Ur Barbiturates Screen Negative (Negative) U Tricyclic Antidepress Negative (Negative) Ur Phencyclidine Scrn Negative (Negative) Ur Amphetamines Screen Negative (Negative) U Methamphetamines Scrn Negative (Negative) Ur MDMA Scrn (Ecstasy) Negative (Negative) U Benzodiazepines Scrn Negative (Negative) Urine Cocaine Screen Negative (Negative) U Marijuana (THC) Screen Negative (Negative) Ethyl Alcohol ( - 10) mg/dL Chlamy pneumoniae PCR Not detected (Not Detect) Adenovirus (PCR) Not detected (Not Detect) B. pertussis DNA (PCR) Not detected (Not Detecte) B.parapertussis DNA PCR Not detected (Not Detecte) Coronavirus OC43 (PCR) Not detected (Not Detect) Coronavirus HKU1 (PCR) Not detected (Not Detect) Coronavirus 229E (PCR) Not detected (Not Detect) SARS-CoV-2 (PCR) Detected H (Not Detecte) Coronavirus NL63 (PCR) Not detected (Not Detect) Human Metapneumovir PCR Not detected (Not Detect) Influenza Type A (PCR) Not detected (Not Detect) Influenza Type B (PCR) Not detected (Not Detect) M. pneumoniae (PCR) Not detected (Not Detect) Parainfluenza 1 (PCR) Not detected (Not Detect) Parainfluenza 2 (PCR) Detected H (Not Detect) Parainfluenza 3 (PCR) Not detected (Not Detect) Parainfluenza 4 (PCR) Not detected (Not Detect) RSV (PCR) Detected H (Not Detect) Entero/Rhino (PCR) Not detected (Not Detect) 11/09/22 11/09/22 Range/Units 19:10 20:15 WBC (4.5-11.0) X10^3/uL RBC (4.0-5.2) X10^6/uL Hgb (12.0-16.0) g/dL Hct (36-46) % MCV (80-100) fL MCH (26-34) PG MCHC (30-36) % RDW (11.6-14.8) % Plt Count (150-400) X10^3/uL Neut % (Auto) (50-75) % Lymph % (Auto) (25-40) % [place] % (Auto) (3-14) % Eos % (Auto) (2-4) % Baso % (Auto) (0-2) % Neut # (Auto) (0436-5400) /uL Lymph # (Auto) (7210-4443) /uL [place] # (Auto) (0-900) /uL Eos # (Auto) (0-450) /uL Baso # (Auto) (0-100) /uL PT (10.1-12.7) SECONDS INR (0.9-1.3) APTT (26-36) SECONDS Sodium (137-145) mmol/L Potassium (3.4-5.1) mmol/L Chloride (98-107) mmol/L Carbon Dioxide (22-32) mmol/L BUN (7-17) mg/dL Creatinine (0.52-1.04) mg/dL Estimated GFR (>60) mL/min BUN/Creatinine Ratio (6-22) Glucose (80-110) mg/dL Lactate 2.7 H (0.7-2.1) mmol/L Calcium (8.4-10.2) mg/dL Magnesium (1.6-2.3) mg/dL Total Bilirubin (0.2-1.3) mg/dL AST (14-36) IU/L ALT (<35) IU/L Alkaline Phosphatase (38-126) U/L Total Creatine Kinase (30-135) U/L CK-MB (CK-2) CK-MB (CK-2) Rel Index Troponin I (0.01-0.034) ng/mL NT-Pro-B Natriuret Pep (<450) pg/mL Total Protein (6.3-8.2) g/dL Albumin (3.5-5.0) g/dL Globulin (1.7-4.1) g/dL Albumin/Globulin Ratio (1.0-2.8) Lipase (23-300) U/L Urine Color Yellow Urine Appearance Clear Urine pH 7.0 (4.5-8.0) Ur Specific [place] 1.010 (1.000-1.035) Urine Protein Negative (Negative) Urine Glucose (UA) Negative (Negative) g/dL Urine Ketones Trace H (NEGATIVE) Urine Occult Blood Trace-intact (Negative) Urine Nitrate Negative (Negative) Urine Bilirubin Negative (NEGATIVE) Urine Urobilinogen 0.2 (0.2) E.U./dL Ur Leukocyte Esterase Negative (NEGATIVE) Urine RBC 0-1/hpf (0-5/HPF) Urine WBC 0-1/hpf (0-5/HPF) Ur Squamous Epith Cells 0-1 /hpf (0-5/HPF) Urine Bacteria None seen (None) Ur Culture Indicated? Cult not indicated U Opiates 300ng/mL cut (Negative) Ur Oxycodone Screen (Negative) Urine Methadone Screen (Negative) Ur Barbiturates Screen (Negative) U Tricyclic Antidepress (Negative) Ur Phencyclidine Scrn (Negative) Ur Amphetamines Screen (Negative) U Methamphetamines Scrn (Negative) Ur MDMA Scrn (Ecstasy) (Negative) U Benzodiazepines Scrn (Negative) Urine Cocaine Screen (Negative) U Marijuana (THC) Screen (Negative) Ethyl Alcohol ( - 10) mg/dL Chlamy pneumoniae PCR (Not Detect) Adenovirus (PCR) (Not Detect) B. pertussis DNA (PCR) (Not Detecte) B.parapertussis DNA PCR (Not Detecte) Coronavirus OC43 (PCR) (Not Detect) Coronavirus HKU1 (PCR) (Not Detect) Coronavirus 229E (PCR) (Not Detect) SARS-CoV-2 (PCR) (Not Detecte) Coronavirus NL63 (PCR) (Not Detect) Human Metapneumovir PCR (Not Detect) Influenza Type A (PCR) (Not Detect) Influenza Type B (PCR) (Not Detect) M. pneumoniae (PCR) (Not Detect) Parainfluenza 1 (PCR) (Not Detect) Parainfluenza 2 (PCR) (Not Detect) Parainfluenza 3 (PCR) (Not Detect) Parainfluenza 4 (PCR) (Not Detect) RSV (PCR) (Not Detect) Entero/Rhino (PCR) (Not Detect) Imaging Data Chest x-ray: My Impression: Independently viewed by me Radiologist Impression: FINDINGS:? ? Surgical changes and devices:? None.? ? Lungs and pleura:? On this supine examination, no large pneumothorax or large pleural effusions are seen. No focal areas of lung consolidation are seen. ? Mediastinum:? The cardiac contours are within normal limits. The aorta demonstrates calcification and tortuosity. ? Bones and chest wall:? Age-appropriate bony degenerative changes are seen.? No suspicious bony lesions.? Overlying soft tissues appear unremarkable.? ? ? IMPRESSION:? ? Limited portable chest examination, without a significant cardiopulmonary abnormality identified.? ? ? Dictated by: Carlos Astudillo M.D. on 11/09/2022 at 16:45 ? ? CT scan - head: Radiologist Impression: FINDINGS:? Image quality:? Good.? Beam hardening artifact.? ? CSF spaces:? Basal cisterns are patent.? No extra-axial fluid collections.? Ventricles are normal in size and shape.? ? Brain:? No midline shift.? No intracranial masses or hemorrhage.? Reyes-white matter interface is normal.? ? Skull and face:? Calvarium and visualized facial bones are intact, without suspicious lesions.? ? Sinuses:? Visualized sinuses and mastoids are clear.? ? IMPRESSION:? No acute intracranial abnormality. ? ? Dictated by: Dimitri Kilgore M.D. on 11/09/2022 at 18:03 ? ? CT scan - abdomen/pelvis: Radiologist Impression: FINDINGS:? Image quality:? Excellent.? ? Lung bases:? Unremarkable.? ? Heart:? No significant findings. ? ? ABDOMEN: Liver:? Unremarkable.? ? Gallbladder:? Not seen.? ? Biliary ducts:? Mild biliary prominence is seen, which is not considered to be pathologic in this cholecystectomy patient. Pancreas:? Unremarkable.? ? Spleen:? Unremarkable.? ? Adrenal Glands:? Unremarkable.? ? Kidneys and Ureters:? Unremarkable.? ? ? Stomach and Bowel:? Stomach, small bowel loops, and colon are unremarkable.? Mild distal colonic diverticulosis is seen, without findings of active diverticulitis. The stomach is relatively decompressed. Peritoneum:? No abnormal intraperitoneal fluid.? No free air.? ? Ventral Wall: ? No hernia.? Postoperative change of the anterior abdominal wall along the midline can be seen. Abdominal Nodes:? No retroperitoneal or mesenteric adenopathy by size criteria.? Vessels:? Aorta and inferior vena cava are normal in size.? Atherosclerotic calcification is noted.? ? PELVIS: Pelvic Organs: This patient is status post hysterectomy. No adnexal masses are seen.? Bladder:? Unremarkable.? ? Pelvic Nodes: No enlarged lymph nodes.? Miscellaneous: No inguinal hernias are seen. ? ? ? Bones:? This patient has transitional lumbar anatomy. For the purposes of this examination, the level with the last pair of ribs is considered to be T12.? By this numbering scheme, the L5 level is transitional and is highly sacralized on the right side.? Age-appropriate bony degenerative changes are seen.? ? ? IMPRESSION:? ? No dilated loops of small bowel are seen.? The stomach is relatively decompressed. ? ? 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 Dictated by: Carlos Astudillo M.D. on 11/09/2022 at 17:10 ? ? MDM Narrative Medical decision making narrative: This is a 87-year-old female who presents with weakness, nausea and vomiting dizziness or vertigo symptoms after having at least 1 or 2 alcoholic drinks. Suspect alcohol intoxication but based on age and daughter does not think she had more than 1 or 2 drinks at the most will search for other causes as well, EKG shows bifascicular block patient denies any chest pain or active shortness of breath. She is having nausea and vomiting, labs show CBC with eosinophils 1%, no other abnormalities, coags are overall appropriate, CMP does show a potassium of 3 this could be from emesis, CO2 of 18, BUN of 18 with normal renal function glucose of 122 and point of care glucose was 108 in the room, LFTs are appropriate, troponin Alcohol is only 84. Alcohol could certainly be a component but is not particularly high legal limit is 80, will do some additional imaging particularly as her potassium and CO2 level are both quite low. Head CT as well as imaging of the abdomen pelvis obtained, lactate cultures added on 630pm Dr Huerta, care is assumed from Dr. Chacko. Records reviewed, labs reviewed patient is independently examined. No acute abnormalities of the head, chest x-ray is unremarkable and abdominal pelvis CT does not show any significant pathology. Patient has had 2 L of fluid, potassium replacement, respiratory panel is pending and lactic acid will be repeated Respiratory panel comes back positive for COVID, parainfluenza 2 and RSV. After fluids and potassium replacement she is feeling significantly better. With a road test, she is able to independently sit up, get out of bed and walk to the bathroom. Oxygen saturations remain 97% on room air. She feels like she is back to her baseline and is surprised at the diagnosis of multiple viruses. She states that she is exquisitely sensitive to medications and his already had COVID twice and would prefer to not use paxlovid She lives with her daughter who will be able to bring her back should things worsen. With shared decision-making between patient, daughter and myself we have decided that discharge home is safe and appropriate. Discharge Plan Departure Patient Disposition: Home Clinical Impression: COVID-19, Dehydration, Respiratory syncytial virus, Infection due to parainfluenza virus 2, Acute hypokalemia Instructions: DI for Dehydration -- Adult, DI for Viral Upper Respiratory Infection -- Adult Activity Restrictions/Additional Instructions: Thank you for coming in today You were slightly dehydrated in your potassium level was rather low. We have replaced both of these. Incidentally, he tested positive for COVID, para influenza virus and respiratory syncytial virus. I am quite pleased that you are not having significant symptoms with these. At time of discharge were able to get up independently, walk to the bathroom and your oxygen saturations were at 97% on room air. I believe it is safe for you to go home this evening with your daughter. If you find that you are getting worse it is important to return to the emergency department. I wish you well Prescriptions: No Action No Known Home Medications Referrals: Lebron Sherman DO [Primary Care Provider] - Visit Report Forms: Patient Portal/API
--- NOTE | 2022-11-09 17:01 | DI.RAD.S_ITS ---
PROCEDURE: XR CHEST 1V INDICATIONS: chest pain TECHNIQUE: One view of the chest was acquired. COMPARISON: None. FINDINGS: Surgical changes and devices: None. Lungs and pleura: On this supine examination, no large pneumothorax or large pleural effusions are seen. No focal areas of lung consolidation are seen. Mediastinum: The cardiac contours are within normal limits. The aorta demonstrates calcification and tortuosity. Bones and chest wall: Age-appropriate bony degenerative changes are seen. No suspicious bony lesions. Overlying soft tissues appear unremarkable. IMPRESSION: Limited portable chest examination, without a significant cardiopulmonary abnormality identified. Dictated by: Carlos Astudillo M.D. on 11/09/2022 at 16:45 Approved by: Carlos Astudillo M.D. on 11/09/2022 at 16:45
[2022-11-09] MEDS: ONDANSETRON 4 MG/2 ML INJ IV (17:10)
[2022-11-09 17:14] LABS: Add Manual Diff / Slide Review NO; Basophils Absolute Auto 100 /uL (0-100); Eosinophils Absolute Auto 100 /uL (0-450); Hematocrit 41.8 % (36-46); Hemoglobin 14.4 g/dL (12.0-16.0); Lymphocytes Absolute Auto 2700 /uL (1100-4500); Lymphocytes Percent Auto 31.1 % (25-40); Mean Corpuscular HGB Conc 34.6 % (30-36); Mean Corpuscular Hemoglobin 32.2 PG (26-34); Monocytes Absolute Auto 400 /uL (0-900); Monocytes Percent Auto 4.9 % (3-14); Neutrophils Absolute Auto 5500 /uL (1500-7000); Platelet Count 298 X10^3/uL (150-400); Red Blood Cell Count 4.49 X10^6/uL (4.0-5.2); Red Cell Distribution Width 12.5 % (11.6-14.8); White Blood Cell Count 8.8 X10^3/uL (4.5-11.0)
[2022-11-09 17:15] LABS: Prothrombin Time 11.7 SECONDS (10.1-12.7)
[2022-11-09 17:18] LABS: PTT Partial Thromboplastin Tim 24 SECONDS (26-36)
[2022-11-09 17:19] LABS: Ethanol (ETOH) 84 mg/dL
[2022-11-09 17:20] LABS: Alanine Aminotransferase 20 IU/L (<35); Albumin 4.2 g/dL (3.5-5.0); Albumin Globulin Ratio 1.4 (1.0-2.8); Alkaline Phosphatase 71 U/L (38-126); Aspartate Aminotransferase 22 IU/L (14-36); BUN Creatinine Ratio 32.7 (6-22); Bilirubin Total 0.5 mg/dL (0.2-1.3); Blood Urea Nitrogen 18 mg/dL (7-17); Calcium 9.1 mg/dL (8.4-10.2); Carbon Dioxide 18 mmol/L (22-32); Chloride 107 mmol/L (98-107); Creatine Kinase 52 U/L (30-135); Estimated Glomerular Filt Rate > 60 mL/min (>60); Globulin 3.1 g/dL (1.7-4.1); Glucose 122 mg/dL (80-110); HEMOLYSIS 18 (0-50); Lipase 59 U/L (23-300); Sodium 138 mmol/L (137-145); Total Protein 7.3 g/dL (6.3-8.2)
[2022-11-09] MEDS: SODIUM CHLORIDE 0.9% 1,000 ML 1000 ML IV ×2 (17:21→18:52)
--- NOTE | 2022-11-09 17:26 | DI.CT.S_ITS ---
PROCEDURE: CT HEAD/BRAIN WO CON INDICATIONS: weakness, vomiting TECHNIQUE: Noncontrast 4.5 mm thick angled axial sections acquired from the foramen magnum to the vertex, with coronal and sagittal reformats. For radiation dose reduction, the following was used: automated exposure control, adjustment of mA and/or kV according to patient size. COMPARISON: None. FINDINGS: Image quality: Good. Beam hardening artifact. CSF spaces: Basal cisterns are patent. No extra-axial fluid collections. Ventricles are normal in size and shape. Brain: No midline shift. No intracranial masses or hemorrhage. Reyes-white matter interface is normal. Skull and face: Calvarium and visualized facial bones are intact, without suspicious lesions. Sinuses: Visualized sinuses and mastoids are clear. IMPRESSION: No acute intracranial abnormality. Dictated by: Dimitri Kilgore M.D. on 11/09/2022 at 18:03 Approved by: Dimitri Kilgore M.D. on 11/09/2022 at 18:05
--- NOTE | 2022-11-09 17:28 | DI.CT.S_ITS ---
PROCEDURE: CT ABDOMEN PELVIS W CON INDICATIONS: n/v TECHNIQUE: After the administration of oral and IV contrast, axial sections were acquired from the lung bases to the pubic symphysis. Coronal and sagittal reformats were performed. For radiation dose reduction, the following was used: automated exposure control, adjustment of mA and/or kV according to patient size. COMPARISON: None. FINDINGS: Image quality: Excellent. Lung bases: Unremarkable. Heart: No significant findings. ABDOMEN: Liver: Unremarkable. Gallbladder: Not seen. Biliary ducts: Mild biliary prominence is seen, which is not considered to be pathologic in this cholecystectomy patient. Pancreas: Unremarkable. Spleen: Unremarkable. Adrenal Glands: Unremarkable. Kidneys and Ureters: Unremarkable. Stomach and Bowel: Stomach, small bowel loops, and colon are unremarkable. Mild distal colonic diverticulosis is seen, without findings of active diverticulitis. The stomach is relatively decompressed. Peritoneum: No abnormal intraperitoneal fluid. No free air. Ventral Wall: No hernia. Postoperative change of the anterior abdominal wall along the midline can be seen. Abdominal Nodes: No retroperitoneal or mesenteric adenopathy by size criteria. Vessels: Aorta and inferior vena cava are normal in size. Atherosclerotic calcification is noted. PELVIS: Pelvic Organs: This patient is status post hysterectomy. No adnexal masses are seen. Bladder: Unremarkable. Pelvic Nodes: No enlarged lymph nodes. Miscellaneous: No inguinal hernias are seen. Bones: This patient has transitional lumbar anatomy. For the purposes of this examination, the level with the last pair of ribs is considered to be T12. By this numbering scheme, the L5 level is transitional and is highly sacralized on the right side. Age-appropriate bony degenerative changes are seen. IMPRESSION: No dilated loops of small bowel are seen. The stomach is relatively decompressed. 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 on 11/09/2022 at 17:10 Approved by: Carlos Astudillo M.D. on 11/09/2022 at 17:12
[2022-11-09 17:32] LABS: Troponin I < 0.012 ng/mL (0.01-0.034)
[2022-11-09 17:48] LABS: Magnesium 2.1 mg/dL (1.6-2.3)
[2022-11-09 17:58] LABS: NT-proBNP (BNP-Adult 18+) 92 pg/mL (<450)
[2022-11-09] MEDS: POTASSIUM CHLORIDE IN WATER 10 MEQ/100 ML PIGGYBACK 100 MEQ IV (18:00)
[2022-11-09 18:11] LABS: Lactate (Lactic Acid) 4.1 mmol/L (0.7-2.1)
[2022-11-09 19:16] LABS: Appearance Urine UA CLEAR; Bilirubin Urine UA NEGATIVE (NEGATIVE); Color Urine UA YELLOW; Glucose Urine UA NEGATIVE (Negative); Ketones Urine UA TRACE (NEGATIVE); Leukocyte Esterase Urine UA NEGATIVE (NEGATIVE); Nitrite Urine UA NEGATIVE (Negative); Occult Blood Urine UA TRACE-INTACT (Negative); Protein Urine UA NEGATIVE (Negative); Urobilinogen Urine UA 0.2 E.U./dL (0.2)
[2022-11-09 19:20] LABS: UR Morphine/Opiate cutoff 300 Negative (Negative); Ur Creatinine Normal (Normal); Ur Specific Gravity Normal (Normal); Urine Amphetamines Negative (Negative); Urine Barbiturates Negative (Negative); Urine Benzodiazepines Negative (Negative); Urine Cocaine Negative (Negative); Urine MDMA Negative (Negative); Urine Methadone Negative (Negative); Urine Methamphetamines Negative (Negative); Urine Oxycodone Negative (Negative); Urine Phencyclidine Negative (Negative); Urine Tetrahydrocannabinol Negative (Negative); Urine Tricyclic Antidepressant Negative (Negative); Urine pH Normal (Normal)
[2022-11-09 19:23] LABS: Bacteria Urine None Seen; Culture Indicated Urine Cult Not Indicated; RBC Urine 0-1/HPF (0-5/HPF); Squamous Epithelial Cell Urine 0-1 /HPF (0-5/HPF); WBC Urine 0-1/HPF (0-5/HPF)
[2022-11-09] MEDS: POTASSIUM CHLORIDE IN WATER 10 MEQ/100 ML PIGGYBACK 75 MEQ IV (19:27)
[2022-11-09 19:39] LABS: Reflexed Lactate in 2 Hours Y
[2022-11-09 19:55] LABS: Adenovirus Not Detected (Not Detect); Coronavirus 229E Not Detected (Not Detect); Coronavirus HKU1 Not Detected (Not Detect); Coronavirus NL 63 Not Detected (Not Detect); Coronavirus OC43 Not Detected (Not Detect); SARS- CoV-2 Detected (Not Detecte)
[2022-11-09 19:56] LABS: B. parapertussis Not Detected (Not Detecte); Bordetella pertussis Not Detected (Not Detecte); Chlamydophila pneumoniae Not Detected (Not Detect); Human Metapneumovirus Not Detected (Not Detect); Human Rhinovirus/Enterovirus Not Detected (Not Detect); Influenza A Not Detected (Not Detect); Influenza B Not Detected (Not Detect); Mycoplasma pneumoniae Not Detected (Not Detect); Parainfluenza Virus 1 Not Detected (Not Detect); Parainfluenza Virus 2 Detected (Not Detect); Parainfluenza Virus 3 Not Detected (Not Detect); Parainfluenza Virus 4 Not Detected (Not Detect); Respiratory Syncytial Virus Detected (Not Detect)
[2022-11-09 20:52] LABS: Lactate 2HR (Lactic Acid Rflx) 2.7 mmol/L (0.7-2.1)
== END 2022-11-09 21:16 | disposition home or self-care (01) ==
PROVIDERS: Emergency Medicine; Emergency Provider Emergency Medicine; PCP Family Medicine
DX: U07.1 COVID-19 (principal); B97.4 Respiratory syncytial virus as the cause of diseases classified elsewhere; E87.6 Hypokalemia; R11.2 Nausea with vomiting, unspecified; R10.9 Unspecified abdominal pain; R07.9 Chest pain, unspecified; R53.1 Weakness; R42 Dizziness and giddiness
CPT/HCPCS: 36415; 51701; 70450; 71045; 74177; 80053; 80305; 80320; 81001; 82550; 83605; 83690; 83735; 83880; 84484; 85025; 85610; 85730; 87040; 87633; 93005; 96365; 96366; 96375; 99284; J2405; Q9967

== ENCOUNTER 2025-05-20 12:01 | Emergency (ER) | payer MEDICARE, OTHER, SELFPAY ==
[2025-05-20] VITALS (13 sets, daily range): BP systolic 131–206; BP diastolic 73–93; PULSE 63–85; RESP 18–23; TEMP 36.6–36.7; O2SAT 92–98; BMI 28.0
--- NOTE | 2025-05-20 12:25 | DI.CT.S_ITS ---
PROCEDURE: CT STROKE INDICATIONS: feels dizzy, chest pain TECHNIQUE: Noncontrast 4.5 mm thick angled axial sections acquired from the foramen magnum to the vertex, with coronal reformats. For radiation dose reduction, the following was used: automated exposure control, adjustment of mA and/or kV according to patient size. COMPARISON: [facility], CT, CT HEAD/BRAIN WO CON, 11/09/2022, 17:45. FINDINGS: Image quality: Diagnostic. CSF spaces: Basal cisterns are patent. No extra-axial fluid collections. The ventricles are symmetric in size and shape. Brain: No intracranial bleeds or mass effect. There is cerebral volume loss, with resultant ventricular and sulcal prominence. There are periventricular and deep white matter chronic small vessel ischemic changes. There is intracranial internal carotid artery atherosclerosis. Skull and face: Calvarium and visualized facial bones appear intact, without suspicious lesions. Sinuses: Visualized sinuses and mastoids are clear. IMPRESSION: 1. No acute intracranial pathology. 2. Age related volume loss and mild white matter small vessel chronic ischemic changes unchanged from prior study. Findings were reported to ordering physician at the time of dictation. This study fulfills neurological imaging criteria for inclusion or exclusion of acute stroke therapies based on available published neurological guidelines. Dictated by: Vernon Juárez M.D. on 05/20/2025 at 12:52 Approved by: Vernon Juárez M.D. on 05/20/2025 at 12:53
--- NOTE | 2025-05-20 12:26 | DI.RAD.S_ITS ---
PROCEDURE: XR CHEST 1V INDICATIONS: chest pain TECHNIQUE: One view of the chest was acquired. COMPARISON: [facility], CR, XR CHEST 1V, 11/09/2022, 17:27. FINDINGS AND IMPRESSION: No dense airspace disease or pleural effusions. Heart size is at the upper limit of normal. Unchanged mediastinal contours. Degenerative osseous findings. Focal nodular opacity in the right lower lung, favored to represent costal cartilage calcification on-end Dictated by: Brooks Pedersen M.D. on 05/20/2025 at 11:59 Approved by: Brooks Pedersen M.D. on 05/20/2025 at 12:01
--- NOTE | 2025-05-20 12:33 | PC.NURSE ---
dr lewis to bedside for NIH exam on arrival to room.
[2025-05-20 12:35] LABS: Add Manual Diff / Slide Review NO; Hematocrit 43.7 % (36-46); Hemoglobin 15.1 g/dL (12.0-16.0); Lymphocytes Absolute Auto 1500 /uL (1100-4500); Mean Corpuscular HGB Conc 34.5 % (30-36); Mean Corpuscular Hemoglobin 32.2 PG (26-34); Mean Corpuscular Volume 93.6 fL (80-100); Platelet Count 254 X10^3/uL (150-400)
--- NOTE | 2025-05-20 12:36 | ED.CHESTPAIN ---
HPI - Chest Pain General Chief Complaint: Chest Pain Stated Complaint: almost fainted chest and back pain Time Seen by Provider: 05/20/25 12:25 Source: patient, RN notes reviewed and old records reviewed Mode of arrival: Wheelchair Limitations: no limitations History of Present Illness HPI narrative: 89-year-old female no reported medical issues no daily medications does follow up with primary care. Patient presents with complaint of feeling little bit dizzy and lightheaded like she might pass out occurred twice today patient did have some chest discomfort earlier and a little bit into her left shoulder. Denies fevers or chills. No severe headaches, no numbness tingling or weakness, no difficulty with speech, no falls, no trauma. Patient states no shortness of breath. She denies any nausea or vomiting. No dysuria urgency or frequency. No diarrhea or constipation. No new swelling in extremities. No difficulty with movement. Patient states she really takes aspirin last dose was 3 months ago, no daily medications. Has reported allergies to penicillin and narcotics. Patient does not use any tobacco, no alcohol, no recreational drugs. Follows with Dr. Sherman for primary care. She was accompanied by family who states she was little bit more lightheaded had a near syncopal episode earlier today both times were when she was ambulating yesterday at the grocery store and today while walking around the house. She notes she does have a history of vertigo but states it seems a little bit different. Nurses and was concerned about stroke but patient and family both state they do not think she was having any stroke-like symptoms. Related Data Previous Rx's ?Medication ?Instructions ?Recorded DISABLED PARKING PERMIT #1 ea 02/22/25 Allergies Allergy/AdvReac Type Severity Reaction Status Date / Time codeine AdvReac Severe Vomiting Verified 05/20/25 12:26 morphine AdvReac Severe Vomiting Verified 05/20/25 12:26 Penicillins AdvReac Intermediate Vomiting Verified 05/20/25 12:26 oxycodone AdvReac Vomiting Unverified 05/20/25 12:26 Review of Systems Review of Systems ROS Unobtainable: All systems reviewed & are unremarkable except as noted in HPI and below Patient History Medical History Deformity of toenail Onychomycosis Positional vertigo Chronic right shoulder pain Back pain Memory loss, short term Social History Smoking Status: Never smoker Smoking Status: Never smoker Exam Narrative Exam Narrative: GEN: well nourished, well appearing female, alert and oriented x 3, patient appears to be in no acute distress. HEENT: Atraumatic, pupils are equal round reactive to light, extraocular movements are intact, nares are clear, TMs are clear with no fluid, there is no conjunctival pallor. Throat is clear without any exudates, erythema, tonsillar enlargement or uvular deviation, no facial droop HEART: Regular rate and rhythm without murmur, clicks, rubs. No carotid bruits, pulses are equal in upper and lower extremities LUNGS:Lungs clear to auscultation, no wheezes, rales, crackles, chest moves symmetrically ABD:bowel sounds normal, soft, non-tender, no guarding, rebound, rigidity, no masses noted, no hepatosplenomegaly :No CVA tenderness MSCL: Non-tender, no muscle atrophy, muscles strength 5/5 upper and lower extremities, full range of motion. NEURO:CN 2-12 intact, sensation normal, finger nose finger test normal, heel contreras test normal, no dysarthria, no aphasia. Initial Vital Signs Initial Vital Signs: Vital Signs Pulse Oximetry 98 05/20/25 12:20 Scores NIH Stroke Scale Level of Conciousness: Alert, keenly responsive Ask month/age: Answers both questions correctly. Open/close eyes, close hand: Performs both tasks correctly Best gaze horizontal: Normal Visual chavira: No visual loss Facial palsy: Normal symetrical movement Left arm drift: No drift for full 10 sec Right arm drift: No drift for full 10 sec Left leg drift: No drift for full 5 sec Right leg drift: No drift for full 5 sec Limb ataxia: Absent Sensory on face/arms/legs: Normal, no sensory loss Best language: No aphasia, normal Dysarthria: Normal Extinction or inattention: No abnormality Total NIH Stroke scale score: 0 Course Orders Ordered: ED Orders 05/20/25 12:24 Complete Blood Count AUTO DIFF Stat Comprehensive Metabolic Panel Stat Lipase Stat NT-proBNP (BNP-Adult 18+) Stat Troponin & CK Cardiac Panel Stat 05/20/25 12:25 CT head/brain wo con Stat 05/20/25 12:26 XR chest 1V Stat EKG-12 Lead Stat 05/20/25 13:59 Urine Culture Stat Urine Microscopic Stat 05/20/25 14:23 Trop I [Troponin I] Stat Vital Signs Vital signs: Vital Signs - 8 hr 05/20/25 12:20 05/20/25 12:25 05/20/25 12:30 Temperature Pulse Rate 83 82 Respiratory Rate 20 Blood Pressure 183/88 H Pulse Oximetry 98 96 94 Oxygen Delivery Method Room Air 05/20/25 12:34 05/20/25 12:34 05/20/25 12:38 Temperature Pulse Rate 85 Respiratory Rate Blood Pressure 206/93 H 180/84 H Pulse Oximetry 93 Oxygen Delivery Method 05/20/25 12:38 05/20/25 13:00 05/20/25 13:00 Temperature Pulse Rate 77 66 Respiratory Rate 18 Blood Pressure 170/79 H Pulse Oximetry 96 98 Oxygen Delivery Method 05/20/25 13:27 05/20/25 13:30 05/20/25 13:30 Temperature 98.0 F Pulse Rate 67 Respiratory Rate 23 Blood Pressure 155/74 H Pulse Oximetry 95 Oxygen Delivery Method 05/20/25 14:05 05/20/25 14:07 05/20/25 14:07 Temperature Pulse Rate 66 63 Respiratory Rate 18 Blood Pressure 155/73 H Pulse Oximetry 92 93 Oxygen Delivery Method 05/20/25 14:30 05/20/25 14:30 05/20/25 15:00 Temperature Pulse Rate 66 64 Respiratory Rate 22 Blood Pressure 148/86 H Pulse Oximetry 96 96 Oxygen Delivery Method 05/20/25 15:00 05/20/25 15:24 Temperature 97.8 F Pulse Rate 68 Respiratory Rate 18 Blood Pressure 131/73 131/73 Pulse Oximetry 96 Oxygen Delivery Method Room Air MDM - Chest Pain Lab Data 05/20/25 12:24 05/20/25 12:24 Labs: Lab Results 05/20/25 05/20/25 05/20/25 Range/Units 12:24 12:26 13:59 WBC 7.3 (4.5-11.0) X10^3/uL RBC 4.68 (4.0-5.2) X10^6/uL Hgb 15.1 (12.0-16.0) g/dL Hct 43.7 (36-46) % MCV 93.6 (80-100) fL MCH 32.2 (26-34) PG MCHC 34.5 (30-36) % RDW 12.8 (11.6-14.8) % Plt Count 254 (150-400) X10^3/uL Neut % (Auto) 71.8 (50-75) % Lymph % (Auto) 20.5 L (25-40) % Milam % (Auto) 6.3 (3-14) % Eos % (Auto) 0.7 L (2-4) % Baso % (Auto) 0.7 (0-2) % Neut # (Auto) 5200 (1828-2814) /uL Lymph # (Auto) 1500 (9115-3990) /uL Milam # (Auto) 500 (0-900) /uL Eos # (Auto) 0 (0-450) /uL Baso # (Auto) 0 (0-100) /uL Sodium 138 (137-145) mmol/L Potassium 3.9 (3.4-5.1) mmol/L Chloride 105 (98-107) mmol/L Carbon Dioxide 22 (22-32) mmol/L BUN 18 H (7-17) mg/dL Creatinine 0.59 (0.52-1.04) mg/dL Estimated GFR > 60 (>60) mL/min BUN/Creatinine Ratio 30.5 H (6-22) Glucose 99 (70-99) mg/dL POC Whole Bld Glucose 106 H (70-99) mg/dL Calcium 9.3 (8.4-10.2) mg/dL Total Bilirubin 1.1 (0.2-1.3) mg/dL AST 31 (14-36) IU/L ALT 23 (<35) IU/L Alkaline Phosphatase 75 (38-126) U/L Total Creatine Kinase 76 (30-135) U/L Troponin I < 0.012 (0.01-0.034) ng/mL NT-Pro-B Natriuret Pep 83 (<450) pg/mL Total Protein 7.6 (6.3-8.2) g/dL Albumin 4.4 (3.5-5.0) g/dL Globulin 3.2 (1.7-4.1) g/dL Albumin/Globulin Ratio 1.4 (1.0-2.8) Lipase 65 (23-300) U/L Urine RBC 0-1/hpf (0-5/HPF) Urine WBC 30-100/hpf H (0-5/HPF) Ur Squamous Epith Cells 0-1 /hpf (0-5/HPF) Ur Transition Epith Cell 0-1/hpf (0-5/HPF) Urine Bacteria Many (>30) H (None) Urine Yeast 0-1/hpf (None) Ur Culture Indicated? Cult not indicated Vol Urine Centrifuged 10ml (spun) 05/20/25 Range/Units 14:23 WBC (4.5-11.0) X10^3/uL RBC (4.0-5.2) X10^6/uL Hgb (12.0-16.0) g/dL Hct (36-46) % MCV (80-100) fL MCH (26-34) PG MCHC (30-36) % RDW (11.6-14.8) % Plt Count (150-400) X10^3/uL Neut % (Auto) (50-75) % Lymph % (Auto) (25-40) % Milam % (Auto) (3-14) % Eos % (Auto) (2-4) % Baso % (Auto) (0-2) % Neut # (Auto) (7739-5175) /uL Lymph # (Auto) (1871-9542) /uL Milam # (Auto) (0-900) /uL Eos # (Auto) (0-450) /uL Baso # (Auto) (0-100) /uL Sodium (137-145) mmol/L Potassium (3.4-5.1) mmol/L Chloride (98-107) mmol/L Carbon Dioxide (22-32) mmol/L BUN (7-17) mg/dL Creatinine (0.52-1.04) mg/dL Estimated GFR (>60) mL/min BUN/Creatinine Ratio (6-22) Glucose (70-99) mg/dL POC Whole Bld Glucose (70-99) mg/dL Calcium (8.4-10.2) mg/dL Total Bilirubin (0.2-1.3) mg/dL AST (14-36) IU/L ALT (<35) IU/L Alkaline Phosphatase (38-126) U/L Total Creatine Kinase (30-135) U/L Troponin I < 0.012 (0.01-0.034) ng/mL NT-Pro-B Natriuret Pep (<450) pg/mL Total Protein (6.3-8.2) g/dL Albumin (3.5-5.0) g/dL Globulin (1.7-4.1) g/dL Albumin/Globulin Ratio (1.0-2.8) Lipase (23-300) U/L Urine RBC (0-5/HPF) Urine WBC (0-5/HPF) Ur Squamous Epith Cells (0-5/HPF) Ur Transition Epith Cell (0-5/HPF) Urine Bacteria (None) Urine Yeast (None) Ur Culture Indicated? Vol Urine Centrifuged Urine Dip Bedside Urine Glucose Negative Bedside Urine Bilirubin - Negative Bedside Urine Ketone + 15 Urine Specific [place] 1.015 Bedside Urine Occult Blood +/- Bedside Urine pH 6.0 Bedside Urine Protein - Negative Bedside Urine Urobilinogen - Negative Bedside Urine Nitrite - Negative Bedside Urine Leukocytes +++ 500 Esterase ECG Data Attestation: I personally reviewed and interpreted this ECG as follows: Prior ECG tracings: available for review Interpretation: Sinus rhythm premature atrial complexes right bundle-branch block left anterior fascicular block. IL 196, 146 QRS, QTC 441. Patient was prior from October 2024 appears similar. Repeat EKG shows sinus rhythm right bundle-branch block, left anterior fascicular block rate of 69 IL 200 QRS 142 QTC of 443, no acute ST changes. [facility] Narrative Medical decision making narrative: 89-year-old female who feels little bit dizzy had near syncopal episode reportedly yesterday and once today but no syncope she was he feels little off balance but has no focal changes has not adjuvant NIH, she was very well-appearing ambulating in the department. Labs labs show normal white count, hemoglobin and platelets, electrolytes are appropriate BUN 18 creatinine 0.59 glucose is 106 LFTs are negative troponins less than 0.012 with a BNP 83. Negative nitrates positive for leuks, positive for ketones. Urine micro shows 30-100 WBCs 1 RBC 1 squamous 1 transition many bacteria. Repeat troponins less than 0.012 EKG EKG shows sinus rhythm premature complexes right bundle-branch block left anterior fascicular block appears similar to prior. Repeat EKG shows no acute changes. Chest Xray no dense airspace disease or pleural effusions. Heart size upper limit of normal. Unchanged mediastinal contours. Degenerative osseous findings. Focal nodular patchy right lower lung favored to represent costal cartilage calcification on and. Head CT shows no acute intracranial pathology age-related volume loss and mild white matter small-vessel ischemic changes unchanged from prior. Findings were reviewed with myself by Dr. Juárez. Patient is ambulating without issue. Patient requesting to return home discussed repeat troponin if negative we will plan for DC home. Did discuss patient could have little bit of a bladder infection. They prefer to wait for urine culture before starting any antibiotics. Discharge Plan Departure Patient Disposition: Home Clinical Impression: UTI (urinary tract infection), Lightheadedness Activity Restrictions/Additional Instructions: Follow up for recheck. Your workup today is overall reassuring but your urine does show changes consistent with bladder infection. As discussed since you have elected to wait for urine culture they should return in 48-72 hours if positive we will call to set up oral antibiotics and have them sent to the pharmacy of your choice. If negative we will not call but you can always call and follow up results were use the patient portal to check them. Please return if you have new or recurrent symptoms, current lightheadedness or passing out, new chest pain, new shortness of breath, new swelling of your extremities or other new or concerning changes. Prescriptions: No Action (DME) DISABLED PARKING PERMIT See Rx Instructions .ROUTE .MEDSUPPLY Qty: 1 0RF Rx Instructions: I find this patient to be medically disabled and qualified for disabled parking as indicated, and signed, on the accompanying Disabled Parking Application for Individuals. Referrals: Lebron Sherman DO [Primary Care Provider, Family Practice] Stand Alone Forms: Patient Portal/API
[2025-05-20 12:42] LABS: Alanine Aminotransferase 23 IU/L (<35); Albumin 4.4 g/dL (3.5-5.0); Albumin Globulin Ratio 1.4 (1.0-2.8); Alkaline Phosphatase 75 U/L (38-126); Blood Urea Nitrogen 18 mg/dL (7-17); Calcium 9.3 mg/dL (8.4-10.2); Carbon Dioxide 22 mmol/L (22-32); Chloride 105 mmol/L (98-107); Creatine Kinase 76 U/L (30-135); Estimated Glomerular Filt Rate > 60 mL/min (>60); Globulin 3.2 g/dL (1.7-4.1); Glucose 99 mg/dL (70-99); HEMOLYSIS < 15 (0-50); Lipase 65 U/L (23-300); Potassium 3.9 mmol/L (3.4-5.1); Sodium 138 mmol/L (137-145); Total Protein 7.6 g/dL (6.3-8.2)
--- NOTE | 2025-05-20 12:45 | EKG_ITS ---
[address] [address] Test Date: 2025-05-20 Pat Name: William Cesar Department: Room: Gender: Female Director [employer]: MAHAD : 1935 Requested By: Order Number: [id number] Reading MD: Blanco Hansen MD Measurements Intervals [place] Rate: 64 P: 64 [place]: 196 QRS: -75 QRSD: 146 T: 26 QT: 428 QTc: 441 Interpretive Statements Sinus rhythm with premature atrial complexes Right bundle branch block Left anterior fascicular block Bifascicular block Minimal voltage criteria for LVH, may be normal variant ( R in aVL ) NO SIGNIFICANT CHANGE FROM PRIOR TRACING Electronically Signed On 05-21-2025 7:55:20 PDT by Blanco Hansen MD
--- NOTE | 2025-05-20 12:50 | PC.NURSE ---
Patient earnings taken off by patient and handed to daughter, Vicky, for safe-keeping.
[2025-05-20 12:54] LABS: NT-proBNP (BNP-Adult 18+) 83 pg/mL (<450); Troponin I < 0.012 ng/mL (0.01-0.034)
--- NOTE | 2025-05-20 14:06 | PC.NURSE ---
Patient ambulated to bathroom with daughter great, gait was even, denies any dizziness, SOB, or chest pain. Told this RN that she would like to go home
[2025-05-20 14:22] LABS: Culture Indicated Urine Cult Not Indicated
--- NOTE | 2025-05-20 14:25 | EKG_ITS ---
[address] [address] Test Date: 2025-05-20 Pat Name: William Cesar Department: Room: Gender: Female [employer]: JONNY : 1935 Requested By: Order Number: [id number] Reading MD: Blanco Hansen MD Measurements Intervals [place] Rate: 69 P: 48 [place]: 200 QRS: -70 QRSD: 142 T: 14 QT: 414 QTc: 443 Interpretive Statements Normal sinus rhythm Right bundle branch block Left anterior fascicular block Bifascicular block Minimal voltage criteria for LVH, may be normal variant ( R in aVL ) NO SIGNIFICANT CHANGE FROM PRIOR TRACING Electronically Signed On 05-22-2025 8:26:54 PDT by Blanco Hansen MD
[2025-05-20 14:51] LABS: Troponin I < 0.012 ng/mL (0.01-0.034)
== END 2025-05-20 15:26 | disposition home or self-care (01) ==
PROVIDERS: Emergency Provider Emergency Medicine; PCP Family Medicine
DX: R42 Dizziness and giddiness (principal); N39.0 Urinary tract infection, site not specified
CPT/HCPCS: 36415; 70450; 71045; 80053; 81003; 81015; 82550; 82962; 83690; 83880; 84484; 85025; 87086; 93005; 93010; 99284